=== PATIENT | female | born 1985 ===

== ENCOUNTER 2020-10-29 09:01 | Outpatient (CLI) | payer BC ==
[~2020-10-29] VITALS: Ht 149.9 cm; Wt 66.8 kg
[2020-10-29 09:14] VITALS: BP 118/70
[2020-10-29] MEDS ORDERED: PREN1TAB60 PO (09:37)
== END 2020-10-29 10:15 | disposition home or self-care (01) ==
LOC: LDOP 09:01
PROVIDERS: ATTEND Obstetrics & Gynecology
DX: O09.92 Supervision of high risk pregnancy, unspecified, second trimester (principal); O42.912 Preterm premature rupture of membranes, unspecified as to length of time between rupture and onset of labor, second trimester; Z3A.20 20 weeks gestation of pregnancy
CPT/HCPCS: 84112; 99211; G0463